=== PATIENT | male | born 1960 | race Caucasian/White ===

== ENCOUNTER 2018-06-01 19:11 | Emergency (ER) | payer BC ==
[2018-06-01] MEDS ORDERED: Ketorolac 60 MG/2 ML SDV IM ONE (19:34)
[2018-06-01] MEDS ORDERED: Acetaminophen/oxyCODONE 325-5 MG Tab PO ONE ×2 (20:08→20:51)
--- NOTE | 2018-06-01 20:24 | CR ---
[id number] RAD/RAD Ribs Right W PA Chest EXAM: 3 VIEWS RIGHT RIBS. INDICATION: PAIN IN THE RIGHT CHEST, FELL 4 DAYS AGO COMPARISON: None. DISCUSSION: No fracture, dislocation or other osseous abnormality. The lungs are clear. IMPRESSION: 1. No radiographic evidence of acute rib fracture. Vikas Seth DO 06/01/182021 Thank you for allowing us to participate in the care of your patient.
--- NOTE | 2018-06-01 20:24 | EDM.PDOC ---
ED HPI GENERAL MEDICAL PROBLEM - General Chief Complaint: General Stated Complaint: S/P FALL Time Seen by Provider: 06/01/18 19:52 Source of Information: Reports: Patient History Limitations: Reports: No Limitations - History of Present Illness INITIAL COMMENTS - FREE TEXT/NARRATIVE: Patient is a 58-year-old gentleman with presents to the emergency department this evening with a complaint of right-sided chest pain. Patient states that he slipped on the ice and fell on his right side on Thursday. Said he had a little discomfort last few days, but coughed earlier this evening and developed moderate right sided axilla chest pain. Patient denies head injury, headache, shortness of breath, fever, or pain anywhere else as a result of the fall. Onset: Gradual Onset Date: 05/28/18 Duration: Day(s): Location: Reports: Chest Quality: Reports: Ache Severity: Mild Improves with: Reports: None Worsens with: Reports: Movement Context: Reports: Trauma Associated Symptoms: Reports: No Other Symptoms - Related Data Allergies Allergy/AdvReac Type Severity Reaction Status Date / Time No Known Allergies Allergy Verified 04/27/13 23:42 Home Meds: Home Meds Aspirin [Halfprin] 81 mg PO DAILY 04/27/13 [History] Clopidogrel [Plavix] 75 mg PO DAILY 04/27/13 [History] glipiZIDE [Glipizide ER] 2.5 mg PO DAILY 04/27/13 [History] metFORMIN HCl [Metformin HCl] 1,000 mg PO BID 04/27/13 [History] Lisinopril 2.5 mg PO DAILY #30 tablet 04/29/13 [Rx] Calcium Carbonate [Antacid] 200 mg PO QID PRN 06/01/18 [History] Sildenafil [Revatio] 100 mg PO DAILY PRN 06/01/18 [History] ED ROS GENERAL - Review of Systems Review Of Systems: ROS reveals no pertinent complaints other than HPI. Constitutional: Reports: No Symptoms HEENT: Reports: Eye Discharge Respiratory: Reports: Pleuritic Chest Pain Cardiovascular: Reports: No Symptoms Endocrine: Reports: No Symptoms GI/Abdominal: Reports: No Symptoms : Reports: No Symptoms Musculoskeletal: Reports: Other (Right-sided chest pain) Skin: Reports: No Symptoms Neurological: Reports: No Symptoms Psychiatric: Reports: No Symptoms Hematologic/Lymphatic: Reports: No Symptoms Immunologic: Reports: No Symptoms ED EXAM, GENERAL - Physical Exam Exam: See Below Exam Limited By: No Limitations General Appearance: Alert, WD/WN, No Apparent Distress Nose: Normal Inspection, Normal Mucosa, No Blood Throat/Mouth: Normal Inspection EKG INTERPRETATION EKG Date: 06/01/18 Time: 20:30 Rhythm: NSR Rate (Beats/Min): 75 [place]: Normal P-Wave: Present QRS: Normal ST-T: Normal QT: Normal Comparison: NA - No Prior EKG Course - Vital Signs Last Recorded V/S: Last Vital Signs Temp 97.3 F 06/01/18 19:49 Pulse 81 06/01/18 19:49 Resp 20 06/01/18 19:49 BP 170/88 H 06/01/18 19:49 Pulse Ox 96 06/01/18 19:49 - Orders/Labs/Meds Orders: Active Orders 24 hr Category Date Time Status EKG Documentation Completion [RC] ASDIRECTED Care 06/01/18 20:08 Ordered Ribs 2V w Chest Rt [CR] Stat Exams 06/01/18 19:33 Taken EKG 12 Lead [EK] Routine Ther 06/01/18 20:08 Ordered Meds: Medications Discontinued Medications Generic Name Dose Route Start Last Admin Trade Name Freq PRN Reason Stop Dose Admin Ketorolac Tromethamine 60 mg 06/01/18 19:34 06/01/18 19:45 Toradol IM 06/01/18 19:35 60 mg ONETIME ONE Administration Oxycodone/Acetaminophen 1 tab 06/01/18 20:08 Percocet 325-5 Mg PO 06/01/18 20:09 ONETIME ONE - Radiology Interpretation Free Text/Narrative:: Chest x-ray shows no acute cardiopulmonary process or rib fractures. - Re-Assessments/Exams Free Text/Narrative Re-Assessment/Exam: 06/01/18 20:49 Patient afebrile, vital signs stable, chest pain, somewhat diminished, appears nontoxic. Patient will follow-up tomorrow at clinic. Return to the ER if symptoms continue or worsen. Departure - Departure Time of Disposition: 20:50 Disposition: Home, Self-Care 01 Condition: Good Clinical Impression: Acute chest wall pain Chest wall contusion Qualifiers: Encounter type: initial encounter Laterality: right Qualified Code(s): S20.211A - Contusion of right front wall of thorax, initial encounter - Discharge Information Instructions: Rib Contusion, Chest Contusion, Adult, [id number], Chest Wall Pain, [id number] Referrals: Jazmine Harrington PA-C [Primary Care Provider] - Additional Instructions: Follow-up at [facility] in next 1-2 days. Ice to affected area 20 minutes on 40 minutes off. Return to emergency department if symptoms continue or worsen - My Orders Last 24 Hours: My Active Orders 06/01/18 19:33 Ribs 2V w Chest Rt [CR] Stat 06/01/18 20:08 EKG Documentation Completion [RC] ASDIRECTED EKG 12 Lead [EK] Routine - Assessment/Plan Last 24 Hours: My Active Orders 06/01/18 19:33 Ribs 2V w Chest Rt [CR] Stat 06/01/18 20:08 EKG Documentation Completion [RC] ASDIRECTED EKG 12 Lead [EK] Routine Assessment:: Chest wall pain Plan: Follow-up at the clinic tomorrow
== END 2018-06-01 21:05 | disposition home or self-care (01) ==
LOC: KA.ED 19:11
DX: S20.211A Contusion of right front wall of thorax, initial encounter (principal); Z79.82 Long term (current) use of aspirin; Z79.899 Other long term (current) drug therapy; W00.0XXA Fall on same level due to ice and snow, initial encounter
CPT/HCPCS: 71101-RT; 93005; 96372; 99283-25; A9270-GY; J1885

== ENCOUNTER 2018-10-25 07:31 | Day surgery (SDC) | payer BC ==
[2018-10-25] MEDS ORDERED: Sodium Chloride 0.9% 10 ML Syringe FLUSH PRN (08:00)
[2018-10-25] MEDS ORDERED: Sodium Chloride 0.9% 1,000 ML IV SCH (08:00)
[2018-10-25] MEDS ORDERED: Propofol 200 MG/20 ML SDV ONE ×2 (08:17→08:44)
[2018-10-25] MEDS ORDERED: Midazolam 1 MG/ML 2 ML SDV ONE (08:17)
[2018-10-25] MEDS ORDERED: Midazolam 1 MG/ML 2 ML SDV IV ONE (09:30)
[2018-10-25] MEDS ORDERED: Propofol 200 MG/20 ML SDV IV ONE (09:30)
--- NOTE | 2018-10-25 10:35 | PCM.OPNOTE ---
- General Post-Op/Procedure Note Date of Surgery/Procedure: 10/25/18 Operative Procedure(s): Positive occult blood in stool. Findings: Small polyp identified in the transverse colon. Polypectomy performed using cold biopsy forceps. Pre Op Diagnosis: Positive for occult blood in stool. Post-Op Diagnosis: Small polyp at the transverse colon. Anesthesia Technique: MAC Primary Surgeon: Anthony Dixon Condition: Good Free Text/Narrative:: INFORMED CONSENT: Patient is here today for elective colonoscopy. All aspects of this procedure have been discussed with the patient. All possible complications also, including possibility of perforation, infection, pain, bleeding and unknown complications. In the event of perforation patient may need to have abdominal exploration, colon resection, colostomy and even was discussed. Anesthetic complications were handled by anesthesia department. The patient understands fully well. Patient did not have any further questions for me at the end of my interview. The patient wishes for me to proceed. PREOPERATIVE DIAGNOSIS/INDICATIONS: [Positive occult blood in stool] POSTOPERATIVE DIAGNOSIS: [Positive occult blood in stool small polyp of the transverse colon] INSTRUMENT USED: Olympus videocolonoscope. ASA CLASSIFICATION: [2] ANESTHESIA: Continuous EKG, oximetry and intermittent blood pressure and respiratory monitoring were performed throughout the procedure. IV Versed and Fentanyl were administered. PROCEDURE PERFORMED: Colonoscopy POSITIONS OF PATIENT: Left lateral. RECTUM: Normal. SIGMOID COLON: Normal. DESCENDING COLON: Normal. SPLENIC FLEXURE: Normal. TRANSVERSE COLON: A small polyp was identified in the transverse colon. This was removed using the cold biopsy forceps.. HEPATIC FLEXURE: Normal. ASCENDING COLON: Normal. CECUM: Normal. ILEOCECAL VALVE: Normal. BIOPSY: None. TOLERANCE: Excellent. COMPLICATIONS: None.
== END 2018-10-25 11:18 | disposition home or self-care (01) ==
LOC: KA.SDS 07:31
PROVIDERS: ATTEND Family Medicine
DX: D12.3 Benign neoplasm of transverse colon (principal); I10 Essential (primary) hypertension; E11.51 Type 2 diabetes mellitus with diabetic peripheral angiopathy without gangrene; E78.2 Mixed hyperlipidemia; K21.9 Gastro-esophageal reflux disease without esophagitis; Z95.820 Peripheral vascular angioplasty status with implants and grafts; Z79.02 Long term (current) use of antithrombotics/antiplatelets; Z79.82 Long term (current) use of aspirin
CPT/HCPCS: 45380; 82962; J2250; J2704; J7030

== ENCOUNTER 2020-10-22 08:20 | Emergency (ER) | payer BC, OTHER ==
--- NOTE | 2020-10-22 09:14 | EDM.PDOC ---
ED HPI GENERAL MEDICAL PROBLEM - General Chief Complaint: General Stated Complaint: ELEV. BP, ELEV. BLOOD SUGAR Time Seen by Provider: 10/22/20 08:45 Source of Information: Reports: Patient History Limitations: Reports: No Limitations - History of Present Illness INITIAL COMMENTS - FREE TEXT/NARRATIVE: 60 YO WM PRESENTS TO ER FOR EVALUATION OF UNCONTROLLED HYPERTENSION AND HYPE RGLYCEMIA. PT REPORTS HE WENT TO WORK THIS AM AND WAS SENT HOME DUE TO AN ELEVATED BLOOD PRESSURE AND BLOOD SUGAR. 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 PT REPORTS HE BEGAN TO FEEL "CLAMMY" AND JITTERY AND WENT TO THE CLINIC AT WORK WHERE THEY TOOK HIS BLOOD PRESSURE AND IT WAS FOUND TO BE 180 SYSTOLIC AND BLOOD SUGAR WAS 200 PROMPTING CONCERN AND PT WAS SENT TO [place] BY PRIVATE CAR FOR FURTHER EVALUATION AND TREATMENT. BP IN ER WAS 141/71 WITH A BLOOD SUGAR OF 130. PT REPORTS HE IS FEELING FINE. PT STATES HE WAS SEEN IN CLINIC LAST WEEK AND HAD BLOOD WORK WHICH WAS NORMAL WELL HAD HIS DOSE OF LISINOPRIL INCREASED FROM 2.5MG TO 5MG. PT DENIES CHEST PAIN, SHORTNESS OF BREATH, NO VOMITING, NO FEVER/CHILLS, NO SYNCOPE OR NEAR SYNCOPE. PT REPORTS HE FEELS BACK TO HIS BASELINE HEALTH STATUS AND WOULD PREFER MINIMAL EVALUATION AT THIS TIME. PT IS ALERT AND ORIENTED X 4. Onset: Today Location: Reports: Generalized Severity: Mild Improves with: Reports: Rest Worsens with: Reports: None Associated Symptoms: Reports: No Other Symptoms, Diaphoresis. Denies: Chest Pain, Fever/Chills, Headaches, Nausea/Vomiting, Shortness of Breath, Weakness - Related Data Allergies Allergy/AdvReac Type Severity Reaction Status Date / Time No Known Allergies Allergy Verified 10/22/20 08:48 Home Meds: Home Meds Aspirin [Halfprin] 81 mg PO DAILY 04/27/13 [History] Clopidogrel [Plavix] 75 mg PO DAILY 04/27/13 [History] glipiZIDE [Glipizide ER] 2.5 mg PO DAILY 04/27/13 [History] metFORMIN HCl [Metformin HCl] 1,000 mg PO BIDMEALS 04/27/13 [History] Calcium Carbonate [Antacid] 200 mg PO ASDIRECTED PRN 06/01/18 [History] Sildenafil [Revatio] 100 mg PO DAILY PRN 06/01/18 [History] atorvaSTATin [Lipitor] 5 mg PO BEDTIME 10/22/18 [History] Lisinopril 5 mg PO DAILY 10/22/20 [History] Past Medical History Cardiovascular History: Reports: PVD Musculoskeletal History: Reports: Gout, Other (See Below) Other Musculoskeletal History: tennis elbow Endocrine/Metabolic History: Reports: Diabetes, Type II - Infectious Disease History Infectious Disease History: Reports: Chicken Pox, Mumps - Past Surgical History HEENT Surgical History: Reports: Oral Surgery, Other (See Below) Other HEENT Surgeries/Procedures: [place] teeth Cardiovascular Surgical History: Reports: Other (See Below) Other Cardiovascular Surgeries/Procedures: stent above right knee GI Surgical History: Reports: Cholecystectomy Social & Family History - Tobacco Use Tobacco Use Status *Q: Current Every Day Tobacco User Years of Tobacco use: 40 Packs/Tins Daily: 0.5 - Caffeine Use Caffeine Use: Reports: Coffee, Energy Drinks - Alcohol Use Days Per Week of Alcohol Use: 7 Number of Drinks Per Day: 2 Total Drinks Per Week: 14 - Recreational Drug Use Recreational Drug Use: No ED ROS GENERAL - Review of Systems Review Of Systems: See Below Constitutional: Reports: No Symptoms HEENT: Reports: No Symptoms Respiratory: Reports: No Symptoms Cardiovascular: Reports: No Symptoms Endocrine: Reports: High Glucose GI/Abdominal: Reports: No Symptoms : Reports: No Symptoms Musculoskeletal: Reports: No Symptoms Skin: Reports: No Symptoms Neurological: Reports: No Symptoms Psychiatric: Reports: No Symptoms Hematologic/Lymphatic: Reports: No Symptoms Immunologic: Reports: No Symptoms ED EXAM, GENERAL - Physical Exam Exam: See Below Exam Limited By: No Limitations General Appearance: Alert, WD/WN, No Apparent Distress Head: Atraumatic, Normocephalic Neck: Normal Inspection, Supple, Non-Tender, Full Range of Motion Respiratory/Chest: No Respiratory Distress, Lungs Clear, Normal Breath Sounds, No Accessory Muscle Use, Chest Non-Tender Cardiovascular: Normal Peripheral Pulses, Regular Rate, Rhythm, No Edema, No Gallop, No JVD, No Murmur, No Rub GI/Abdominal: Normal Bowel Sounds, Soft, Non-Tender, No Organomegaly, No Distention, No Abnormal Bruit, No Mass Back Exam: Normal Inspection, Full Range of Motion, NT Extremities: Normal Inspection, Normal Range of Motion, Non-Tender, Normal Capillary Refill, No Pedal Edema Neurological: Alert, Oriented, CN II-XII Intact, Normal Cognition, Normal Gait, Normal Reflexes, No Motor/Sensory Deficits Psychiatric: Normal Affect, Normal Mood Skin Exam: Warm, Dry, Intact, Normal Color, No Rash Lymphatic: No Adenopathy Course - Vital Signs Last Recorded V/S: Last Vital Signs Temp 95.9 F L 10/22/20 08:25 Pulse 78 10/22/20 08:25 Resp 18 10/22/20 08:25 BP 141/75 H 10/22/20 08:25 Pulse Ox 99 10/22/20 08:25 - Orders/Labs/Meds Labs: Laboratory Tests 10/22/20 Range/Units 08:45 POC Glucose 136 (70-140) mg/dL Departure - Departure Time of Disposition: 09:26 Disposition: Home, Self-Care 01 Condition: Good Clinical Impression: Diaphoresis, Hyperglycemia due to type 2 diabetes mellitus Hypertension Qualifiers: Hypertension type: primary hypertension Qualified Code(s): I10 - Essential (primary) hypertension - Discharge Information Instructions: Hyperglycemia, [id number], Managing Your Hypertension Referrals: Reyna Mosley CHEMISTRY TEACHER [Primary Care Provider] - Forms: ED Department Discharge, ED Return to Work/School Form Additional Instructions: 1. DISCHARGE HOME 2. DECREASE COFFEE/CAFFEINE AND SWEETENER/REFINE SUGARS 3. PLENTY OF FLUIDS-WATER 64OZ/DAY 4. FOLLOW UP IN CLINIC FOR FURTHER EVALUATION AND TREATMENT 5. RETURN TO ER FOR WORSENING SYMPTOMS- CHEST PAIN, DIZZINESS, SHORTNESS OF BREATH Sepsis Event Note (ED) - Evaluation Sepsis Screening Result: No Definite Risk - Focused Exam Vital Signs: Vital Signs Temp Pulse Resp BP Pulse Ox 10/22/20 08:25 95.9 F L 78 18 141/75 H 99 - Assessment/Plan Assessment:: 1. DIAPHORESIS-RESOLVED 2. HYPERGLYCEMIA-IMPROVED 3. HYPERTENSION-IMPROVED Plan: 1. DISCHARGE HOME 2. DECREASE COFFEE/CAFFEINE AND SWEETENER/REFINE SUGARS 3. PLENTY OF FLUIDS-WATER 64OZ/DAY 4. FOLLOW UP IN CLINIC FOR FURTHER EVALUATION AND TREATMENT 5. RETURN TO ER FOR WORSENING SYMPTOMS- CHEST PAIN, DIZZINESS, SHORTNESS OF BREATH
== END 2020-10-22 09:55 | disposition home or self-care (01) ==
LOC: KA.ED 08:20
DX: E11.65 Type 2 diabetes mellitus with hyperglycemia (principal); I10 Essential (primary) hypertension; R61 Generalized hyperhidrosis; Z79.82 Long term (current) use of aspirin; Z79.02 Long term (current) use of antithrombotics/antiplatelets; Z79.84 Long term (current) use of oral hypoglycemic drugs; Z72.0 Tobacco use
CPT/HCPCS: 82947; 99284

== ENCOUNTER 2023-09-29 07:56 | Day surgery (SDC) | payer BC ==
[2023-09-29] MEDS: Sodium Chloride 0.9% 1,000 ML IV SCH (08:11)
[2023-09-29] MEDS ORDERED: Midazolam 1 MG/ML 2 ML SDV ONE (08:29)
[2023-09-29] MEDS ORDERED: Propofol 200 MG/20 ML SDV ONE (08:29)
[2023-09-29] MEDS ORDERED: Sodium Chloride 0.9% 10 ML Syringe FLUSH PRN (09:00)
== END 2023-09-29 10:50 | disposition home or self-care (01) ==
LOC: KA.SDS 07:56
PROVIDERS: ATTEND Family Medicine
DX: Z12.11 Encounter for screening for malignant neoplasm of colon (principal); D12.5 Benign neoplasm of sigmoid colon; K64.8 Other hemorrhoids; I10 Essential (primary) hypertension; E78.2 Mixed hyperlipidemia; I73.9 Peripheral vascular disease, unspecified; I65.23 Occlusion and stenosis of bilateral carotid arteries; E11.9 Type 2 diabetes mellitus without complications; E66.3 Overweight; M16.0 Bilateral primary osteoarthritis of hip; M10.9 Gout, unspecified; R25.1 Tremor, unspecified; F17.210 Nicotine dependence, cigarettes, uncomplicated; Z79.899 Other long term (current) drug therapy; Z79.84 Long term (current) use of oral hypoglycemic drugs; Z86.010 Personal history of colon polyps; Z68.25 Body mass index [BMI] 25.0-25.9, adult
CPT/HCPCS: 00811; 82947; J2250; J2704; J7030

== ENCOUNTER 2024-09-27 06:54 | Day surgery (SDC) | payer BC ==
[2024-09-27] MEDS ORDERED: Sodium Chloride 0.9% 10 ML Syringe FLUSH PRN (07:00)
[2024-09-27] MEDS: Sodium Chloride 0.9% 1,000 ML IV SCH (07:28)
[2024-09-27 07:43] LABS: GLUCOSE,POC 167 mg/dL (70-140)
[2024-09-27] MEDS ORDERED: Glycopyrrolate 0.2 MG/ML SDV ONE (07:54)
[2024-09-27] MEDS ORDERED: Propofol 200 MG/20 ML SDV ONE (07:54)
[2024-09-27] MEDS ORDERED: Midazolam 1 MG/ML 2 ML SDV ONE (07:54)
[2024-09-27 11:31] VITALS: BP 148/59; PULSE 80
== END 2024-09-27 10:00 | disposition home or self-care (01) ==
LOC: KA.SDS 06:54
PROVIDERS: ATTEND Family Medicine
DX: K29.50 Unspecified chronic gastritis without bleeding (principal); B96.81 Helicobacter pylori [H. pylori] as the cause of diseases classified elsewhere; K29.80 Duodenitis without bleeding; K21.9 Gastro-esophageal reflux disease without esophagitis; I10 Essential (primary) hypertension; E11.51 Type 2 diabetes mellitus with diabetic peripheral angiopathy without gangrene; Z79.899 Other long term (current) drug therapy
CPT/HCPCS: 00731; 82947; J1596; J2250; J2704; J7030